=== PATIENT | male | born 1990 | race Caucasian/White ===

== ENCOUNTER 2021-02-16 10:39 | Emergency (ER) | payer SELFPAY ==
[~2021-02-16] VITALS: Ht 177.8 cm; Wt 63.5 kg
[2021-02-16] MEDS ORDERED: IBUPROFEN 600 MG TAB PO STA (10:54)
== END 2021-02-16 13:35 | disposition home or self-care (01) ==
LOC: ER 10:54
DX: J02.9 Acute pharyngitis, unspecified (principal); Z20.822 Contact with and (suspected) exposure to COVID-19
CPT/HCPCS: 99282; U0002